=== PATIENT | male | born 1975 | race Caucasian/White ===

== ENCOUNTER → 2017-04-08 | Day surgery (SDC) | payer BC, OTHER ==
[2017-04-02 10:03] VITALS: BMI 28.0
[~2017-04-08] VITALS: Ht 172.7 cm; Wt 84.1 kg
[~2017-04-08] MED LIST: FENTANYL CITRATE INJ 50 MCG/1 ML 2 ML VIAL ONE; LIDOCAINE HCL 2% 2 ML VIAL (20MG/ML) ONE; LORA-741 PO; MELO15TA4 PO; ONDANSETRON INJ 2 MG/ML 2 ML VIAL IV PRN; PANT40TA PO; PROPOFOL IV EMULSION 10 MG/ML 20 ML VIAL IV ONE; SODIUM CHLORIDE 0.9% 500ML 500 ML IV ONE; TIZA2CAP PO
[2017-04-08 07:51] VITALS: Ht 172.7 cm; Wt 84.1 kg
--- NOTE | 2017-04-08 08:15 | Endo History and Physical ---
History & Physical Date of Service: Apr 08, 2017. Chief Complaint: REFLUX ? BARRETTS Referring Physician: DR. ENGLISH History of Present Illness Patient with GERD that seems seems to be refractory to PPI. Planned for EGD with [facility] monitoring. Past Surgical History Hx Cardiac Surgery: No Hx Internal Defibrillator: No Hx Pacemaker: No Hx Abdominal Surgery: Yes (NABIL) Hx of Implantable Prosthesis: No Hx Post-Op Nausea and Vomiting: Yes Hx Cancer Surgery: No Hx Thoracic Surgery: No Hx Orthopedic: Yes (CERVICAL SURGERY (FUSION C4-7) TOTAL 3 CERV. SURGERIES (NO DIFF. WITH ROM)) Hx Urinary Tract Surgery: No Family History None Social History Smoking Status: Never Smoker Hx Substance Use: No Hx Alcohol Use: No Allergies Coded Allergies: No Known Allergies (Unverified , 04/08/17) Current Medications Reported Home Medications Medications Dose Route/Sig Max Daily Dose Days Date Category Zanaflex (Tizanidine HCl) 2 Mg Cap 2 Mg PO TID PRN 04/02/17 Reported Ativan (Lorazepam) 0.5 Mg Tab 0.5 Mg PO TID PRN 04/02/17 Reported Protonix (Pantoprazole Sodium) 40 Mg Tab 40 Mg PO HS 04/02/17 Reported Vital Signs Weight (Kilograms): 84.09 Height (Feet): 5 Height (Inches): 8 Date Time Temp Pulse Resp B/P (MAP) Pulse Ox O2 Delivery O2 Flow Rate FiO2 04/08/17 07:58 36.4 68 20 132/68 (89) 97 Room Air Physical Exam General Appearance: no apparent distress Respiratory/Chest: Auscultation: breath sounds normal Cardiovascular: Heart Auscultation: RRR Abdomen: Inspection & Palpation: soft, non-distended Assessment and Plan Patient was explained in details regarding risk, benefit and alternatives of the procedure, risk of aspiration, bleeding and perforation explained. agreed and consented. EGD with [facility] capsule insertion.
--- NOTE | 2017-04-08 09:01 | GI REPORT ---
Procedure Date: 04/08/2017 8:32 AM Procedure: Upper GI endoscopy Indications: Heartburn, Esophageal reflux symptoms that recur despite appropriate therapy Medicines: Monitored Anesthesia Care Complications: No immediate complications. Estimated Blood Loss: Estimated blood loss: none. Procedure: Pre-Anesthesia Assessment: - Prior to the procedure, a History and Physical was performed, and patient medications and allergies were reviewed. The patient is competent. The risks and benefits of the procedure and the sedation options and risks were discussed with the patient. All questions were answered and informed consent was obtained. Patient identification and proposed procedure were verified by the physician and the nurse in the procedure room. Respiratory Examination: clear to auscultation. CV Examination: normal. ASA Grade Assessment: II - A patient with mild systemic disease. After reviewing the risks and benefits, the patient was deemed in satisfactory condition to undergo the procedure. The anesthesia plan was to use monitored anesthesia care (MAC). Immediately prior to administration of medications, the patient was re-assessed for adequacy to receive sedatives. The heart rate, respiratory rate, oxygen saturations, blood pressure, adequacy of pulmonary ventilation, and response to care were monitored throughout the procedure. The physical status of the patient was re-assessed after the procedure. After obtaining informed consent, the endoscope was passed under direct vision. Throughout the procedure, the patient's blood pressure, pulse, and oxygen saturations were monitored continuously. The scope was introduced through the mouth, and advanced to the second part of duodenum. The upper GI endoscopy was accomplished without difficulty. The patient tolerated the procedure well. Findings: LA Grade C (one or more mucosal breaks continuous between tops of 2 or more mucosal folds, less than 75% circumference) esophagitis with no bleeding was found in the lower third of the esophagus. The Z-line was found 40 cm from the incisors. The FIGUEROA capsule with delivery system was introduced through the mouth and advanced into the esophagus, such that the FIGUEROA pH capsule was positioned 34 cm from the incisors, which was 6 cm proximal to the EG junction. Suction was applied to the well of the FIGUEROA pH capsule to suck in the adjacent mucosa of the esophagus using the external vacuum pump set at a minimum vacuum pressure of 580 mmHg for 30 seconds. The FIGUEROA pH capsule was then deployed by depressing the plunger on top of the handle to advance the locking pin into the mucosa, thereby attaching the capsule to the esophagus. The plunger was then rotated a quarter turn clockwise to release the capsule from the delivery system. The delivery system was then withdrawn. Endoscopy was utilized for probe placement and diagnostic evaluation. The entire examined stomach was normal. The duodenal bulb and 2nd part of the duodenum were normal. Impression: - LA Grade C esophagitis. - Z-line, 40 cm from the incisors. The FIGUEROA pH capsule was positioned 34 cm from the naris, which was 6 cm proximal to the EG junction. - Normal stomach. - Normal duodenal bulb and 2nd part of the duodenum. - No specimens collected. Recommendation: - Discharge patient to home. - Return in [facility] on Friday morning. - Follow an antireflux regimen. - Use Protonix (pantoprazole) 40 mg PO BID for 2 months starting on Friday04/11/2017. - Repeat the upper endoscopy in 2 months to check healing and obtain biopsies if persistent. Cathleen Santos MD 04/08/2017 9:00:49 AM This report has been signed electronically. Note Initiated On: 04/08/2017 8:32 AM I attest to the content of the Intraoperative Record and orders documented therein, exceptions below
--- NOTE | 2017-04-08 09:03 | Discharge Instructions ---
Endoscopy Patient Instructions Date / Procedure(s) Performed Apr 08, 2017. EGD Allergy Information Coded Allergies: No Known Allergies (Unverified , 04/08/17) Discharge Date / Findings Apr 08, 2017. - LA Grade C esophagitis. - Z-line, 40 cm from the incisors. The FIGUEROA pH capsule was positioned 34 cm from the naris, which was 6 cm proximal to the EG junction. Medication Instructions Reported Home Medications Medications Dose Route/Sig Max Daily Dose Days Date Category Zanaflex (Tizanidine HCl) 2 Mg Cap 2 Mg PO TID PRN 04/02/17 Reported Ativan (Lorazepam) 0.5 Mg Tab 0.5 Mg PO TID PRN 04/02/17 Reported Protonix (Pantoprazole Sodium) 40 Mg Tab 40 Mg PO HS 04/02/17 Reported Provider Instructions Activity Restrictions - No exercising or heavy lifting for 24 hours. - Do not drink alcohol the day of the procedure. - Do not drive a car or operate machinery until the day after the procedure. - Do not make any important decisions or sign important papers in 24 hours after the procedure. Following Day: - Return to full activity which may include returning to work/school. Diet Start your diet with liquids and light foods (jello, soup, juice, toast). Then eat your usual diet if not nauseated. Treatment For Common After Affects For mild abdominal pain, bloating, or excessive gas: - Rest - Eat lightly - Lie on right side Follow-Up Information - Return in [facility] on Friday morning. - Follow an antireflux regimen. - Use Protonix (pantoprazole) 40 mg PO BID for 2 months starting on 04/11. - Repeat the upper endoscopy in 2 months to check healing and obtain biopsies if persistent. - Follow-up with DR. ENGLISH as scheduled Anesthesia Information What You Should Know You have had a procedure that required some medicine to reduce anxiety and discomfort. This treatment is called moderate sedation. After receiving the treatment, you may be sleepy, but you will be able to breathe on your own. The effects of the treatment may last for several hours. Follow these instructions along with Activity/Diet recommendations noted above: * Do NOT do anything where dizziness or clumsiness would be dangerous. * Rest quietly at home today, then you can be up and about tomorrow. * Have a responsible person stay with you the rest of today. * You may have had an I.V. today. If so, you may take the dressing off later today. Recommendations Call your doctor if: * Trouble breathing * Continuous vomiting for more than 24 hours * Temperature above 101 degrees * Severe abdominal pain or bloating * Pain not relieved by pain medicine ordered * There is increased drainage or redness from any incision * A large amount of rectal bleeding greater than 2-3 tablespoons. (If you had a polyp/s removed or have hemorrhoids, a small amount of blood - from the rectum is to be expected.) * You have any unanswered questions or concerns. IN THE EVENT OF A SERIOUS EMERGENCY, GO TO THE NEAREST EMERGENCY ROOM Your discharge instructions were prepared by provider Cathleen Santos. Patient Instructions Signature Page Keanu Lopez Patient (or Guardian) Signature/Date: I have read and understand the instructions given to me by my caregivers. Caregiver/RN/Doctor Signature/Date: The above-named patient and/or guardian has received patient instructions on this date. + Original Patient Signature Page (only) stays with chart. Please make copy for patient.
[2017-04-08 09:25] VITALS: BP 143/78; PULSE 67; O2SAT 97
--- NOTE | 2017-04-08 09:32 | Anesthesiology Progress Note ---
Anesthesia Post Op Note Date & Time Apr 08, 2017 at 09:32 Vital Signs Pain Intensity: 0 Vital Signs Past 12 Hours Date Time Temp Pulse Resp B/P (MAP) Pulse Ox O2 Delivery O2 Flow Rate FiO2 04/08/17 09:10 78 20 144/83 (103) 99 Room Air 04/08/17 08:55 70 20 128/79 (95) 99 Room Air 04/08/17 07:58 36.4 68 20 132/68 (89) 97 Room Air Notes Mental Status: alert / awake / arousable, participated in evaluation Pt Amnestic to Procedure: Yes Nausea / Vomiting: adequately controlled Pain: adequately controlled Airway Patency, RR, SpO2: stable & adequate BP & HR: stable & adequate Hydration State: stable & adequate Anesthetic Complications: no major complications apparent
== END | disposition home or self-care (01) ==
LOC: C.GI 07:19
PROVIDERS: ATTEND Student in an Organized Health Care Education/Training Program
DX: K21.0 Gastro-esophageal reflux disease with esophagitis (principal)